=== PATIENT | female | born 1980 | race Caucasian/White ===

== ENCOUNTER 2017-10-16 18:01 | Emergency (ER) | payer OTHER ==
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
[2017-10-16 18:12] VITALS: BP 123/82; PULSE 81; TEMP 98.6; BMI 25.8
== END 2017-10-16 18:48 | disposition home or self-care (01) ==
LOC: FER 18:01
DX: S60.211A Contusion of right wrist, initial encounter (principal); Y00.XXXA Assault by blunt object, initial encounter; Y93.89 Activity, other specified; Y92.159 Unspecified place in reform school as the place of occurrence of the external cause; Y99.0 Civilian activity done for income or pay
CPT/HCPCS: 73110-TC-RT-FY; 99281-25